=== PATIENT | female | born 1995 | race Caucasian/White ===

== ENCOUNTER 2021-09-28 16:06 | Observation (INO) ==
[2021-09-28] MEDS ORDERED: VANCOMYCIN 1,000 MG in 0.9 % SODIUM CHLORIDE 250 ML IV ONE (16:15)
[2021-09-28] MEDS ORDERED: cefTRIAXone 1 GM VIAL IV ONE (16:17)
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
[2021-09-28] MEDS ORDERED: LORazepam 1 MG TABLET PO ONE (16:58)
[2021-09-28] MEDS ORDERED: fentaNYL 100 MCG/2 ML VIAL IV ONE (17:26)
[2021-09-28 17:37] LABS: Basophils # (Auto) 0.04 K/mcL (0.00-0.30); Basophils % (Auto) 0.3 % (0.0-2.0); Eosinophils # (Auto) 0.09 K/mcL (0.00-0.70); Eosinophils % (Auto) 0.6 % (0.0-7.0); Hematocrit 33.3 % (34.1-44.9); Hemoglobin 11.2 g/dL (11.2-15.7); Lymphocytes % (Auto) 7.7 % (15.5-49.0); Mean Cell Volume 90.7 fL (80.0-100.0); Mean Corpuscular HGB Conc 33.6 g/dL (31.0-36.0); Monocytes # (Auto) 1.15 K/mcL (0.10-0.90); Monocytes % (Auto) 8.1 % (1.0-12.0); Neutrophils % (Auto) 82.5 % (38.0-78.0); Platelet Count 318 K/mcL (140-440); RBC 3.67 M/mcL (3.59-5.38); Red Cell Distribution Width 12.4 % (11.5-14.5); WBC 14.3 K/mcL (4.5-11.0)
[2021-09-28 18:00] LABS: ALT/SGPT 25 U/L (<40); AST/SGOT 14 U/L (<32); Albumin 2.9 gm/dL (3.2-5.2); Albumin/Globulin Ratio 0.8 (1.0-2.3); Alkaline Phosphatase 141 U/L (39-117); Bilirubin,Total 0.4 mg/dL (0.1-1.0); Blood Urea Nitrogen 7 mg/dL (6-20); Calcium 8.7 mg/dL (8.6-10.4); Carbon Dioxide 24 mmol/L (22-30); Chloride 99 mmol/L (96-108); Globulin 3.7 gm/dL (2.2-3.7); Glomerular Filtration Rate 133; Glucose 106 mg/dL (70-105)
[2021-09-28] MEDS ORDERED: CEPHALEXIN 250 MG CAPSULE PO ONE (19:56)
[2021-09-28] MEDS ORDERED: DOXYCYCLINE HYCLATE 100 MG TABLET.ORL PO ONE (19:58)
[2021-09-28] MEDS ORDERED: NICOTINE 21 MG PATCH TOPICAL ONE (20:02)
[2021-09-28 20:06] LABS: pH,Body Fluid 7.14
[2021-09-28 20:26] LABS: Glucose,Pleural Fluid 50 mg/dL; LDH,Pleural Fluid 392 U/L (<122)
[2021-09-28 20:38] LABS: Appearance,Pleural Fluid Cloudy; Color,Pleural Fluid Yellow; Lymphocytes,Pleural Fluid 3 %; Monocytes,Pleural Fluid 3 %; Neutrophils,Pleural Fluid 94 %; Nucleated Cells,Pleural Fld 1014 /cumm; RBC,Pleural Fluid <50,000 /cumm
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
[2021-09-28] MEDS ORDERED: 0.9 % SODIUM CHLORIDE 10 ML SYRINGE IV PRN (20:46)
[2021-09-28] MEDS ORDERED: morphine 15 MG TABLET PO ONE (21:27)
[2021-09-28] MEDS ORDERED: ONDANSETRON 4 MG/2 ML VIAL IV PRN (22:55)
[2021-09-28] MEDS ORDERED: morphine 4 MG/ML VIAL IV PRN (22:55)
[2021-09-28] MEDS ORDERED: SENNOSIDES 1 TABLET PO SCH (22:55)
[2021-09-28] MEDS ORDERED: ONDANSETRON 4 MG ODT TABLET SL PRN (22:55)
[2021-09-28] MEDS ORDERED: IPRATROPIUM/ALBUTEROL 3 ML AMPUL.NEB NEB PRN (22:55)
[2021-09-28] MEDS ORDERED: traZODone HCL 50 MG TABLET PO PRN (22:55)
[2021-09-28] MEDS ORDERED: ACETAMINOPHEN 325 MG TABLET PO PRN (22:55)
[2021-09-28] MEDS: 0.9 % SODIUM CHLORIDE 10 ML SYRINGE IV SCH ×2 (23:01→23:02)
[2021-09-28] MEDS: DOCUSATE SODIUM 100 MG CAPSULE PO SCH (23:01)
[2021-09-28] MEDS: oxyCODONE HCL 5 MG TABLET PO PRN (23:48)
[2021-09-28] MEDS: LORazepam 1 MG TABLET PO PRN (23:48)
[2021-09-28] MEDS ORDERED: oxyCODONE HCL 5 MG TABLET PO ONE (23:56)
[2021-09-28] MEDS ORDERED: LORazepam 1 MG TABLET ONE (23:56)
[2021-09-29] MEDS: oxyCODONE HCL 5 MG TABLET PO PRN ×3 (02:56→14:11)
[2021-09-29] MEDS ORDERED: oxyCODONE HCL 5 MG TABLET PO ONE (03:04)
[2021-09-29] MEDS: 0.9 % SODIUM CHLORIDE 10 ML SYRINGE IV SCH ×3 (06:40→15:18)
[2021-09-29] MEDS: LORazepam 1 MG TABLET PO PRN ×2 (08:10→14:49)
[2021-09-29] MEDS: DOCUSATE SODIUM 100 MG CAPSULE PO SCH (08:10)
--- NOTE | 2021-09-29 08:20 | Cat Scan Report ---
History: Large right-side multiloculated pleural fluid collection which may be an empyema, short of breath TECHNIQUE: The procedure and risks were explained and the patient consented after patient identification. Patient was scanned supine. Multiloculated pleural fluid collection was identified in the lower two thirds of the right thorax. One of the larger pockets of fluid was identified in the anterior thorax deep to the right breast. The skin over the lateral aspect of the right chest wall was prepped with ChloraPrep then anesthetized with 1% lidocaine. A Chiba needle was inserted. A 0.18 guidewire was inserted. An introducer catheter was then inserted and the wire was exchanged for an 0.35 guidewire. A tract was dilated. 12 [place] multi sidehole drainage catheter was inserted into the fluid collection. 120 cc of jennifer-colored fluid was removed and sent to laboratory for analysis. The chest was rescanned and shows that all of the fluid in the anterior chest had been drained but there still a moderate amount retained fluid laterally and posteriorly. I could not aspirate any additional fluid. I suspect the fluid is multiloculated. The catheter was secured to the skin surface and connected to a Mayco-Cox reservoir. She tolerated the procedure well without complication. IMPRESSION: Successful insertion of a 12 [place] multi sidehole drainage catheter into a loculated pocket of fluid anteriorly in the right mid thorax. The fluid appears to be loculated and cannot be completely drained with one catheter. Interpreted and Authenticated by: El Mosley 09/29/21
[2021-09-29] MEDS ORDERED: VANCOMYCIN PER PHARMACY IV SCH (11:34)
[2021-09-29 12:46] LABS: Basophils # (Auto) 0.02 K/mcL (0.00-0.30); Basophils % (Auto) 0.2 % (0.0-2.0); Hemoglobin 11.2 g/dL (11.2-15.7); Lymphocytes # (Auto) 1.28 K/mcL (1.50-4.80); Lymphocytes % (Auto) 12.3 % (15.5-49.0); Mean Cell Volume 89.9 fL (80.0-100.0); Mean Corpuscular HGB Conc 33.9 g/dL (31.0-36.0); Mean Platelet Volume 9.3 fL (7.4-10.4); Monocytes # (Auto) 0.68 K/mcL (0.10-0.90); Monocytes % (Auto) 6.5 % (1.0-12.0); Neutrophils % (Auto) 79.2 % (38.0-78.0); Platelet Count 307 K/mcL (140-440); RBC 3.67 M/mcL (3.59-5.38); Red Cell Distribution Width 12.3 % (11.5-14.5); WBC 10.4 K/mcL (4.5-11.0)
[2021-09-29] MEDS ORDERED: MEROPENEM 0.5 GM in 0.9 % SODIUM CHLORIDE 50 ML IV SCH (13:00)
[2021-09-29 13:32] LABS: ALT/SGPT 19 U/L (<40); AST/SGOT 15 U/L (<32); Albumin 2.8 gm/dL (3.2-5.2); Albumin/Globulin Ratio 0.8 (1.0-2.3); Alkaline Phosphatase 117 U/L (39-117); Bilirubin,Total 0.5 mg/dL (0.1-1.0); Blood Urea Nitrogen 5 mg/dL (6-20); Calcium 8.4 mg/dL (8.6-10.4); Carbon Dioxide 24 mmol/L (22-30); Chloride 97 mmol/L (96-108); Globulin 3.4 gm/dL (2.2-3.7); Glomerular Filtration Rate 143; Glucose 85 mg/dL (70-105)
[2021-09-29] MEDS ORDERED: VANCOMYCIN 1,000 MG in 0.9 % SODIUM CHLORIDE 250 ML IV SCH (14:00)
--- NOTE | 2021-09-29 14:17 | Discharge Summary ---
Discharge Provider Provider IMPORTANT FOLLOW-UP INFORMATION FOR PCP: Patient information: Note initiated : 09/29/21 at 2:12 pm Service Date, if different from initiated Date: [] Patient: Trang Villegas 26 y/o F admitted on 09/28/21 for Pleural effusion. Chief Complaint: [] Date of admission: 09/28/21 22:45 Discharge date: 09/29/21 Primary care physician: Other Provider Attending physician on admission: Scotty Wheeler Consults: 09/28/21 Consult to Physician [CONS] Stat Comment: Consulting Provider: Scotty Wheeler Reason For Exam: Physician to Consult 09/28/21 22:55 Consult to Physician [CONS] Routine Comment: Consulting Provider: Rodriguez New Reason For Exam: Physician to Consult Attending physician on discharge: Scotty Wheeler COURSE Hospital Course Hospital course: History of present illness: Ms. Villegas is a 26 year old F history of IV drug use, asthma, presenting with 1 week history of shortness of breath, productive cough, and chest pain. There was no prior similar episode. Patient is coming of acute onset, gradually worsening shortness of breath with productive cough with yellow sputum as well as right-sided chest pain. She is also complaining of subjective fever and shaking chills. She presented to our ED about a week ago for the similar symptoms and she was being tested negative for COVID but did not. She was discharged with oral antibiotics. Earlier today she received an outpatients CT of the chest study which shows multiloculated right sided pleural effusions without definite pulmonary infiltrates noted. Dr. Nunez's radiologist send the patient to the ED for further evaluation and treatments. He also placed a 12 [place]une[place] drain on her right sided with serosanguineous pleural fluid drained. The pleural fluid sample was sent for further fluid analysis and initial analysis showing LDH elevations which met lights criteria for exudative pleural effusions. Multiple attempts to put IV access were attempted but failed and Dr. Walton and Dr. Victoria and recommend PICC line placement for IV antibiotics which could be done as soon as tomorrow so the decision was made to skip central line placement for tonight and instead to start patient on oral antibiotics until the PICC line is being placed. 09/29: Spoked with Dr. Laurent from [place] who kindly accepted patient to his service wi consultation to die keeper for consultation. Peripheral IV access placed. IV Vancomycin and Meropenem started after blood cultures collected. Discharge diagnosis: Right loculated pleural effusion Time Spent with Patient Time attestation: Total time spent providing and/or coordinating discharge services: Time spent: Greater than 30 minutes EXAM Constitutional Vitals: Temp Pulse Resp BP Pulse Ox 36.7 C 88 16 104/68 96 09/29/21 12:00 09/29/21 12:00 09/29/21 12:00 09/29/21 12:00 09/29/21 12:00 General appearance: cooperative and mild distress Head Head exam: Present atraumatic and normocephalic Eye Eye exam: Present EOMI and PERRL ENT ENT exam: Present mucous membranes moist, normal exam and normal external ear exam Neck Neck exam: Present normal inspection; Absent lymphadenopathy, tenderness or thyromegaly Respiratory Respiratory exam: Present decreased breath sounds and rhonchi; Absent accessory muscle use, respiratory distress or wheezes Additional comments: 12 [place] drain on right lateral superior chest wall Cardiovascular Cardiovascular exam: Present normal rate and rhythm; Absent JVD GI/Abdominal GI/Abdominal exam: Present normal bowel sounds and soft; Absent organomegaly or tenderness Extremities Exam Extremities exam: Present full ROM, normal capillary refill and normal inspection; Absent tenderness Neurological Exam Neurological exam: Present alert, CN II-XII intact and oriented X3; Absent motor sensory deficit Psychiatric Psychiatric exam: Present normal affect and normal mood; Absent anxious or depressed Skin Skin exam: Present dry and intact Discharge Data Data Completed and Pending Labs on day of discharge: Labs from last 24 hours 09/29/21 09/29/21 09/28/21 11:44 11:44 19:00 WBC 10.4 RBC 3.67 Hgb 11.2 Hct 33.0 L MCV 89.9 MCH 30.5 MCHC 33.9 RDW 12.3 Plt Count 307 MPV 9.3 Immature Gran % (Auto) 0.8 H Neut % (Auto) 79.2 H Lymph % (Auto) 12.3 L Kaufman % (Auto) 6.5 Eos % (Auto) 1.0 Baso % (Auto) 0.2 Lymph # (Auto) 1.28 L [place]auf[place] # (Auto) 0.68 Eos # (Auto) 0.10 Baso # (Auto) 0.02 Immature Gran # 0.08 H Absolute Neutrophils 8.33 H POC VBG pH POC VBG pCO2 at Temp POC VBG pO2 POC VBG HCO3 POC VBG Total CO2 POC Venous O2 Sat POC VBG Base Excess Sodium 135 Potassium 4.0 Chloride 97 Carbon Dioxide 24 Anion Gap 14.0 BUN 5 L Creatinine 0.4 L GFR Calculation 143 Glucose 85 POC Venous Lactate Calcium 8.4 L Total Bilirubin 0.5 AST 15 ALT 19 Alkaline Phosphatase 117 Total Protein 6.2 Albumin 2.8 L Globulin 3.4 Albumin/Globulin Ratio 0.8 L Fluid pH Pleural Fluid Source TNP Pleural Color TNP Pleural Appearance TNP Pleural RBC TNP Pleural Tot Cell Ct TNP Pleural Nuc Cells TNP Pleural Neutrophils TNP Pleural Lymphocytes TNP Pleural Monocytes TNP Pleural Eosinophils TNP Pleural Basophils TNP Pleural Plasma Cells TNP Pleural Mesothelial TNP Pleural Other Cells TNP Pleural Diff Comment TNP Pleural LDH Pleural Glucose HIV 1&2 Ag/Ab, 4th Gen 09/28/21 09/28/21 09/28/21 19:00 16:52 16:48 WBC RBC Hgb Hct MCV MCH MCHC RDW Plt Count MPV Immature Gran % (Auto) Neut % (Auto) Lymph % (Auto) Kaufman % (Auto) Eos % (Auto) Baso % (Auto) Lymph # (Auto) [place]aufman # (Auto) Eos # (Auto) Baso # (Auto) Immature Gran # Absolute Neutrophils POC VBG pH 7.46 H POC VBG pCO2 at Temp 38.7 L POC VBG pO2 31 POC VBG HCO3 27.2 POC VBG Total CO2 28.0 POC Venous O2 Sat 64.0 POC VBG Base Excess 3.0 H Sodium Potassium Chloride Carbon Dioxide Anion Gap BUN Creatinine GFR Calculation Glucose POC Venous Lactate 1.2 Calcium Total Bilirubin AST ALT Alkaline Phosphatase Total Protein Albumin Globulin Albumin/Globulin Ratio Fluid pH 7.14 Pleural Fluid Source Pleural Pleural Color Yellow Pleural Appearance Cloudy Pleural RBC <50,[address] 100 Pleural Nuc Cells 1014 Pleural Neutrophils 94 Pleural Lymphocytes 3 Pleural Monocytes 3 Pleural Eosinophils Pleural Basophils Pleural Plasma Cells Pleural Mesothelial Pleural Other Cells Pleural Diff Comment Pleural LDH 392 H Pleural Glucose 50 HIV 1&2 Ag/Ab, 4th Gen Pending 09/28/21 09/28/21 09/28/21 16:48 16:48 11:40 WBC 14.3 H RBC 3.67 Hgb 11.2 Hct 33.3 L MCV 90.7 MCH 30.5 MCHC 33.6 RDW 12.4 Plt Count 318 MPV 9.0 Immature Gran % (Auto) 0.8 H Neut % (Auto) 82.5 H Lymph % (Auto) 7.7 L Kaufman % (Auto) 8.1 Eos % (Auto) 0.6 Baso % (Auto) 0.3 Lymph # (Auto) 1.10 L [place] # (Auto) 1.15 H Eos # (Auto) 0.09 Baso # (Auto) 0.04 Immature Gran # 0.11 H Absolute Neutrophils 11.88 H POC VBG pH POC VBG pCO2 at Temp POC VBG pO2 POC VBG HCO3 POC VBG Total CO2 POC Venous O2 Sat POC VBG Base Excess Sodium 136 Potassium 3.9 Chloride 99 Carbon Dioxide 24 Anion Gap 13.0 BUN 7 Creatinine 0.5 L GFR Calculation 133 Glucose 106 H POC Venous Lactate Calcium 8.7 Total Bilirubin 0.4 AST 14 ALT 25 Alkaline Phosphatase 141 H Total Protein 6.6 Albumin 2.9 L Globulin 3.7 Albumin/Globulin Ratio 0.8 L Fluid pH Pleural Fluid Source Pleural Color Pleural Appearance Pleural RBC Pleural Tot Cell Ct Pleural Nuc Cells Pleural Neutrophils Pleural Lymphocytes Pleural Monocytes Pleural Eosinophils Pleural Basophils Pleural Plasma Cells Pleural Mesothelial Pleural Other Cells Pleural Diff Comment Pleural LDH Pleural Glucose HIV 1&2 Ag/Ab, 4th Gen Non-reactive Preliminary micro results at discharge 09/28/21 11:44 Blood Culture - Preliminary Blood 09/28/21 19:00 Gram Stain - Preliminary Pleural Fluid Discharge Plan Patient/Caregiver Discharge Instructions Activity: increase activity as tolerated Diet: Regular Diet Prescriptions: Continued ondansetron 4 mg tablet,disintegrating 4 mg PO Q8H PRN (Reason: nausea and vomiting) Qty: 20 0RF ibuprofen 800 mg tablet 800 mg PO Q8H PRN (Reason: pain) Qty: 15 0RF Follow Up Plan Follow up with: Provider,Other [Primary Care Provider] - Patient Disposition: Xfer Acute [facility] Prognosis: Fair Rehab Potential: Good I certify that the patient requires SNF services: No Overall status at discharge: patient is not back to baseline Discharge Orders: Discharge Order (Routine); Ordered 09/29/21 Ordered By: Scotty Wheeler QUALITY VTE Deep Vein Thrombosis/Pulmonary Embolism Present on Admission: No
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
--- NOTE | 2021-09-29 18:28 | EKG ---
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
== END 2021-09-29 13:45 | disposition short-term general hospital (02) ==
LOC: MEDSUR 16:06 → ED 16:06 → MEDSUR 22:45
PROVIDERS: ADMIT Internal Medicine; ATTEND Internal Medicine